=== PATIENT | male | born 1960 | race Caucasian/White ===

== ENCOUNTER 2019-08-10 11:18 | Emergency (ER) | payer MEDICAID ==
[~2019-08-10] VITALS: Ht 172.7 cm; Wt 63.6 kg
[2019-08-10 11:28] VITALS: Ht 172.7 cm; Wt 63.6 kg
[2019-08-10] MEDS ORDERED: TORADOL10 MG PO (13:24)
[2019-08-10] MEDS ORDERED: ROBAXIN500 MG PO (13:24)
[2019-08-10 13:45] VITALS: BP 149/92
== END 2019-08-10 13:46 | disposition home or self-care (01) ==
LOC: D.ER 11:18
DX: M54.12 Radiculopathy, cervical region (principal)

== ENCOUNTER 2019-11-29 08:45 | Day surgery (SDC) | payer MEDICAID ==
[2019-11-28 09:46] LABS: HEMATOCRIT 45.8 % (42.0-54.0); HEMOGLOBIN 15.4 g/dL (13.5-17.5); MCH 30.1 pg (26.0-34.0); MCHC 33.6 g/dL (31.0-37.0); MCV 89.6 fL (80.0-100.0); MEAN PLATELET VOLUME 8.7 fL (7.4-10.4); RBC 5.11 10x6/uL (4.20-6.10); RDW 14.5 % (11.5-14.5); WBC 7.6 10x3/uL (4.8-10.8)
[~2019-11-29] VITALS: Ht 172.7 cm; Wt 67.1 kg
[2019-11-29] VITALS (12 sets, daily range): BP systolic 113–153; BP diastolic 76–97; Ht 172.7 cm; Wt 67.1 kg
--- NOTE | ~2019-11-29 | OP ---
PATIENT NAME: MICHAEL LATHAM MEDICAL RECORD: [id number] :62 LOCATION:[facility] ADMISSION DATE: SURGEON: GAIL FRANKLIN MD DATE OF OPERATION: 11/29/2019 DATE OF SERVICE: 11/29/2019 PREOPERATIVE DIAGNOSES: 1. 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 2. Left ulnar neuropathy at the cubital tunnel. SURGEON: Gail Franklin MD PROCEDURE: 1. Anterior cervical discectomy and fusion at C5-C6 and C6-C7 with removal of osteophytes and anterior cervical plate and screws, separate PEEK interbody cages, Marcela bone allograft with bone stem cells. 2. Left ulnar nerve release with neurolysis. DESCRIPTION OF TECHNIQUE: After induction of general endotracheal anesthesia, both the neck and the left upper extremity were prepped and draped in usual sterile fashion. Attention was turned first to the neck. After sterile prep and drape, 1:100,000 epinephrine was infiltrated into the skin with lidocaine 1%. A transverse skin incision was carried out with #15-blade. The platysma was divided with a #15 blade. Using blunt and sharp dissection with Metzenbaum scissors, I proceeded in the avascular plane medial to the carotid sheath. The C5-C6 and C6-C7 interspaces were identified with fluoroscopic x-ray and a spinal needle. The longus colli muscles were elevated from bodies of C5, C6, and C7. A self-retaining retractor was placed deep to the longus colli muscles. [place] distracting pins were placed by the C5, C6, and C7. Each disc space was incised under distraction with a #11 blade. A series of curettes and pituitary rongeurs was used to remove the disc material. The bony endplates were prepared with curettes. Using a microscope and Midas Karan drill, osteophytes were drilled away posteriorly with Midas-Karan drill at C5-C6 and C6-C7. The posterior longitudinal ligament was removed at C5-C6 and C6-C7. Next, PEEK interbody cages were placed in the disc space under distraction. Prior to this, I filled with Marcela bone allograft containing stem cells. A separate anterior cervical plate and screws was used to span the C5-C6 and C6-C7 interspaces. Self-drilling screws were placed through the holes in the plate. Locking cams were tightened down over the screw heads. Good position of the hardware was confirmed with fluoroscopic x-ray. Meticulous hemostasis was maintained throughout the wound. Wound was irrigated with copious amounts of Ancef irrigant solution. The platysma and subdermal layer closed with interrupted 4-0 Vicryl suture. The skin was reapproximated with Steri-Strips and benzoin. A sterile dressing was applied to the wound. The patient was awakened in good condition, taken to recovery. All counts were reported as correct. Estimated blood loss was minimal. PROCEDURE #2: Left ulnar nerve release with neurolysis: After sterile prep and drape in the left upper extremity, the extremity was exsanguinated. After infiltration of 1:100,000 epinephrine and 1% lidocaine. A curvilinear incision was carried out just medial to the left olecranon process. Progressive dissection took place through a 15 blade down to the ulnar nerve just proximal to the cubital tunnel. The nerve was then followed into the cubital tunnel. Scar tissue was released with a #15 blade and Metzenbaum scissors. Then, the nerve was followed distal to the cubital tunnel. It was completely OPERATIVE REPORT [id number] MICHAEL LATHAM decompressed. The elbow was flexed and extended and the nerve appeared to be adequately mobile and not compressed. The tourniquet was deflated. Meticulous hemostasis was maintained throughout the wound. The wound was irrigated with copious amounts of Ancef irrigant solution. The subdermal layer was closed with interrupted 4-0 Vicryl suture. The skin was closed with macrina. A sterile dressing was applied to the wound. The patient was awakened in good condition and taken to recovery. All counts were reported as correct. Estimated blood loss was minimal. TRANSINT:[id number] Voice Confirmation ID: [id number] DOCUMENT ID: [id number] GAIL FRANKLIN MD CC: [id number] DICTATION DATE: 12/31/19 1017 BUILDING COORDINATOR: 12/31/[address] [facility] 11/30/[address] [id number]
[~2019-11-29 08:45] MED LIST: ALBUTEROL SULF8.5 GM INH; LISINOPRIL-HCT1 EAC7 PO; ROBAXIN500 MG PO; TORADOL10 MG PO
[2019-11-29] MEDS ORDERED: OMEPRAZOLE20 M1 PO (10:04)
[2019-11-29] MEDS ORDERED: IBUPROFEN600 MG PO (10:06)
--- NOTE | 2019-11-29 15:15 | NUR ---
PT ARRIVED IN THE UNIT. PT HOOKED TO ICU MONITORS. VSS. ON RA. NSR. RIGHT ANTERIOR NECK INCISION WELL APPROXIATED WITH STERI STRIPS. LEFT ARM DRESSING C/D/I. FINE MOTOR SKILLS LACKING IN R HAND. BASE LINE ACCORIDING TO THE PT. CALL LIGHT IN REACH. WILL CONT POC.
--- NOTE | 2019-11-29 19:00 | NUR ---
PATIENT RESTING IN BED WITH LEFT ARM ON PILLOW. DRESSING CLEAN DRY AND INTACT.IV TI RIGHT WRIST WITH D5 1/2 AT 50 ML/HR. ON ROOM AIR. ALERT AND ORENTED X4 ABLE TO VOICE NEEDS AND WANTS TO STAFF. INCISION TO RIGHT ANTER NECK IS WELL APROXIMATDED WITH STERI STRIPS IN PLACE NO S/S OF INFECTION. hERIEA NOTED TO RIGHT GROIN. NO NEEDS AT THIS TIME. CALL LIGHT AND WATER IN REACH.
--- NOTE | 2019-11-29 21:10 | NUR ---
RESTIN IN BED WITH TV ON, NO S/S OF DISTRESS NO STATED NEEDS AT THIS TME. CALL LIGHT IN REACH.
--- NOTE | 2019-11-29 23:15 | NUR ---
RESTING IN BED WITH TV ON NO NEEDS AT THIS TIME. PAIN CONTROLED WITH PRN PAIN MEDICATION.
[2019-11-30] VITALS (12 sets, daily range): BP systolic 109–158; BP diastolic 70–90
--- NOTE | 2019-11-30 01:15 | NUR ---
PATIEN IN BED WITH NO S/S OF DISTRESS. IV INTACTNO S/S OF INFECTION. STATED NO NEEDS ATTHIS TIME, WILL CONTINUE [facility] PLAN OF CARE.
--- NOTE | 2019-11-30 03:16 | NUR ---
RESTING ON RIGHT SIDE RESPRATIONS EVENNAND UNLABORED CALL LIGHT IN REACH. NO S/S OF DISTRESS.
--- NOTE | 2019-11-30 05:20 | NUR ---
SLEEPING ON LEFT SIDE RESPRATIONS EVEN AND UNLABORED NO S/S OF DISTRESS.
--- NOTE | 2019-11-30 07:00 | NUR ---
REPORT RECIEVED FROM THE OFF GOING RN. SEE ASSESSMENT IN THE PTS FLOW SHEET. PT SLEEPING IN BED. WOKEN EASILY. NSR ON THE MONITOR. DENIES PAIN AT THIS TIME. RIGHT ANTERIOR NECK INCISION C/D/I. LEFT ARM DRESSING C/D/I. NEURO STATUS GROSSLY INTACT. VSS. CALL LIGHT IN REACH. WILL CONT POC.
--- NOTE | 2019-11-30 09:15 | NUR ---
PT REQUEST A PAIN PILL. SEE MAR. SURGICAL SITES C/D/I AND WELL APPROXIMATED. WILL CONT POC.
--- NOTE | 2019-11-30 10:41 | NUR ---
DR JENSEN PAGED. DR JENSEN STATED HE WILL BE HERE SHORTLY TO DISCHARGE THE PT HOME.
[2019-11-30] MEDS ORDERED: HYDROCODON-ACE1 EA10 PO (11:30)
--- NOTE | 2019-11-30 11:54 | NUR ---
DR JENSEN AT THE PTS BEDSIDE. OK TO DC HOME.
--- NOTE | 2019-11-30 13:54 | NUR ---
PT LEFT WITH ALL HIS BELONINGS ACCOUTNED FOR. DISCHARGE INSTRUCTIONS INCLUDING MEDCATION, WOUND CARE, AND ACTIVITY TOLERANCE WENT OVER WITH THE PT. PT FULLY UNDERSTANDS. PT LEFT IN A STABLE CONDITION WITH HIS COUSING.
== END 2019-11-30 13:57 | disposition home or self-care (01) ==
LOC: D.ICU 08:45 → D.OPS 08:45 → D.PAN 10:45 → D.ICU 14:24 → D.OPS 11-30 13:57
PROVIDERS: Anesthesiology; ATTEND Neurological Surgery
DX: M54.12 Radiculopathy, cervical region (principal); M25.70 Osteophyte, unspecified joint; M50.222 Other cervical disc displacement at C5-C6 level; M50.223 Other cervical disc displacement at C6-C7 level; I10 Essential (primary) hypertension; I51.7 Cardiomegaly; F17.210 Nicotine dependence, cigarettes, uncomplicated

== ENCOUNTER 2020-08-09 19:34 | Emergency (ER) | payer MEDICAID ==
[~2020-08-09] VITALS: Ht 172.7 cm; Wt 61.4 kg
[~2020-08-09 19:34] MED LIST changes: +HYDROCODON-ACE1 EA10 PO; +IBUPROFEN600 MG PO; +OMEPRAZOLE20 M1 PO
[2020-08-09 19:52] VITALS: Ht 172.7 cm; Wt 61.4 kg
[2020-08-09 20:07] LABS: BASOPHILS 0.2 % (0-2); EOSINOPHILS 0.9 % (0-7); HEMATOCRIT 39.7 % (42.0-54.0); HEMOGLOBIN 13.1 g/dL (13.5-17.5); IMMATURE GRANULOCYTES 0.3 % (0-5); LYMPHOCYTES 18.4 % (15-50); MCH 29.5 pg (26.0-34.0); MCV 89.4 fL (80.0-100.0); MEAN PLATELET VOLUME 8.2 fL (7.4-10.4); MONOCYTES 12.6 % (2-11); NEUTROPHILS 67.6 % (40-80); RBC 4.44 10x6/uL (4.20-6.10); RDW 12.7 % (11.5-14.5); WBC 12.7 10x3/uL (4.8-10.8)
[2020-08-09 20:08] LABS: PLATELET COUNT 403 10x3/uL (130-400)
[2020-08-09 20:16] LABS: CALC OSMOLALITY 265 mosm/kg (275-300); CALCIUM 9.5 mg/dL (8.5-10.1); CARBON DIOXIDE 28.7 mmol/L (21.0-32.0); CHLORIDE - SERUM 97 mmol/L (98-107); CREATININE - SERUM 1.5 mg/dL (0.6-1.3); GLUCOSE 121 mg/dL (74-106); POTASSIUM - SERUM 4.3 mmol/L (3.5-5.1); SODIUM 129 mmol/L (136-145); UREA NITROGEN 29 mg/dL (7-18); eGFR NON AFRICAN AMERICAN 51 mL/min (90-120)
[2020-08-09 20:22] LABS: APTT 36.2 SECONDS (22.8-39.4); INR 1.08 (0.85-1.17)
[2020-08-09 20:32] LABS: ALBUMIN 3.3 g/dL (3.4-5.0); ALKALINE PHOSPHATASE 59 U/L (30-120); ALT (SGPT) 16 U/L (10-68); BILIRUBIN - TOTAL 0.31 mg/dL (0.2-1.3); CKMB 0.3 U/L (0.0-3.6); CREATINE KINASE 93 UL (21-232); PRO BNP 190 pg/mL (0-125); PROTEIN - SERUM 8.4 g/dL (6.4-8.2); TROPONIN-I < 0.017 ng/mL (0.000-0.060)
[2020-08-09] MEDS ORDERED: MEDROL DOSE PACK4 MG PO (22:50)
[2020-08-09] MEDS ORDERED: LISINOPRIL20 MG PO (23:37)
[2020-08-10 00:24] VITALS: BP 136/84
== END 2020-08-10 05:48 | disposition home or self-care (01) ==
LOC: D.ER 19:34
PROVIDERS: Emergency Medicine
DX: J44.9 Chronic obstructive pulmonary disease, unspecified (principal); E87.1 Hypo-osmolality and hyponatremia; R07.89 Other chest pain; I10 Essential (primary) hypertension; K21.9 Gastro-esophageal reflux disease without esophagitis; Z72.0 Tobacco use